=== PATIENT | female | born 1935 | race Caucasian/White ===

== ENCOUNTER → 2020-05-29 07:51 | Outpatient (CLI) | payer MEDICARE, OTHER, SELFPAY ==
--- NOTE | 2020-05-29 07:54 | DI.RAD.S_ITS ---
PROCEDURE: XR HIP W PEL IF DONE RT 2V INDICATIONS: R hip/pelvis pain s/p trauma 6 weeks ago TTP inferoposterior TECHNIQUE: AP pelvis with lateral view(s) of the right hip(s). COMPARISON: None. FINDINGS: Bones: There is irregularity at the right femoral neck compared to the left. The trabecular pattern appears somewhat distorted. This raises the possibility of a nondisplaced fracture of the right hip. No dislocation. No avascular necrosis of the right hip. Pelvic ring appears intact. No suspicious bony lesions. There is a mild to moderate symmetric joint space narrowing of the hips bilaterally. There is mild to moderate degenerative change demonstrable by acetabular sclerosis and subchondral cystic change. There is osteophyte formation at the right hip. There is moderate degenerative change at the pubic symphysis. Bones appear osteopenic. Soft tissues: The visualized bowel gas pattern is normal. No suspicious soft tissue calcifications. IMPRESSION: 1. Irregularity and possible distortion of the trabeculae of the right femoral neck compared to the left. This raises the possibility of a prior nondisplaced fracture. -consider further evaluation with MRI to evaluate for bony edema or CT bony pelvis. 2. Osteopenia. 3. 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 Dictated by: Thomas Jiménez M.D. on 05/29/2020 at 8:45 Approved by: Thomas Jiménez M.D. on 05/29/2020 at 8:54
== END ==
PROVIDERS: PCP Registered Nurse Diabetes Educator; Referring Provider Registered Nurse Diabetes Educator; Visit Provider Registered Nurse Diabetes Educator
DX: M25.551 Pain in right hip (principal); M16.0 Bilateral primary osteoarthritis of hip; M85.88 Other specified disorders of bone density and structure, other site
CPT/HCPCS: 73503

== ENCOUNTER → 2020-06-11 13:37 | Outpatient (CLI) | payer MEDICARE, OTHER, SELFPAY ==
--- NOTE | 2020-06-11 | DI.MRI.S_ITS ---
PROCEDURE: MR LUMBAR SPINE WO CON INDICATIONS: Other specified dorsopathies, lumbar region TECHNIQUE: Noncontrast sagittal T1 spin echo and T2 fast echo, sagittal STIR, axial T1 and T2 fast spin echo through the lumbar spine. In cases with scoliosis, additional coronal T2 fast spin echo may be performed. COMPARISON: None. FINDINGS: Image quality: Excellent. Alignment and Curvature: Icef-wo-ufrqwehj dextroconvex scoliotic curvature is seen. There is minimal retrolisthesis seen at L1-2, L2-3, and L3-4. Minimal anterolisthesis is seen at L5-S1. Bone Marrow: Marrow is of normal overall signal. No acute vertebral body compression fractures. Spinal Cord: Conus medullaris terminates at the L1 level. Visualized cord demonstrates normal signal and size. Paraspinous Soft Tissues: No paravertebral masses. Left-sided renal cysts are seen. T12-L1: Mild loss of disc height is seen. Loss of disc signal is seen. Bridging endplate osteophytes are seen. No neural foraminal or central canal narrowing can be seen. L1-L2: [id number] loss of disc height and disc signal can be seen. Bridging endplate osteophytes are seen. There is at least moderate bilateral neural foraminal narrowing seen. No significant central canal narrowing is seen. L2-L3: Zubu-[id number] loss of disc height and disc signal can be seen. Bridging endplate osteophytes are seen. There is at least moderate disc bulge seen, which is eccentric to the left. There is a left lateral recess disc extrusion, with superior migration of disc material, as on series 7 image 16 and on series 3 image 9. There is moderate right-sided and moderate to severe left-sided neural foraminal narrowing seen. There is a degree of compression seen upon the exiting left L2 nerve root. There is at least moderate central canal narrowing seen. There is at least moderate facet hypertrophy seen. Associated hypertrophy of the ligamentum flavum can be seen. L3-L4: At least moderate loss of disc height and disc signal can be seen. Moderate disc bulge is seen, which is eccentric to the left. There is a left lateral recess disc extrusion, which is best seen on series 3, image 9, with superior migration of the disc material. Moderate facet joint hypertrophy is seen. Associated hypertrophy of the ligamentum flavum can be seen. There is moderate to severe bilateral neural foraminal narrowing seen, left worse than right. There is a degree of compression seen upon the exiting nerve roots. At least moderate central canal narrowing is seen. L4-L5: The disc height is well-preserved. Loss of disc signal is seen at this level. Moderate disc bulge is seen, with a central disc protrusion. Moderate prominent facet hypertrophy is seen. Associated hypertrophy of the ligamentum flavum can be seen. Fluid is seen within the facet joints themselves. There is at least moderate left-sided and moderate to severe right-sided neural foraminal narrowing seen. There is a degree of compression seen upon the exiting nerve roots. Severe central canal narrowing is seen, as on series 7, image 26. L5-S1: The disc height is well-preserved. Loss of disc signal is seen at this level. Mild to moderate disc bulge is seen. Prominent facet hypertrophy is seen. Fluid is seen within the facet joints themselves. Associated hypertrophy of the ligamentum flavum can be seen. Moderate to severe bilateral neural foraminal narrowing is seen, right worse than left. There is a degree of compression seen upon the exiting nerve roots. Severe central canal narrowing is seen, as on series 7, image 30. IMPRESSION: Multiple levels of relatively prominent lumbar spine degenerative change are seen, which are most prominent inferiorly. 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 Dictated by: Haroldo Aparicio M.D. on 06/11/2020 at 16:01 Approved by: Haroldo Aparicio M.D. on 06/11/2020 at 16:07
== END ==
PROVIDERS: PCP Registered Nurse Diabetes Educator; Referring Provider Registered Nurse Diabetes Educator; Visit Provider Orthopaedic Surgery
DX: M53.86 Other specified dorsopathies, lumbar region (principal); M47.816 Spondylosis without myelopathy or radiculopathy, lumbar region; M47.817 Spondylosis without myelopathy or radiculopathy, lumbosacral region; M41.86 Other forms of scoliosis, lumbar region
CPT/HCPCS: 72148

== ENCOUNTER → 2020-09-05 07:25 | Outpatient (CLI) | payer MEDICARE, OTHER, SELFPAY ==
[2020-09-05 08:39] LABS: Add Manual Diff / Slide Review NO; Basophils Absolute Auto 100 /uL (0-100); Basophils Percent Auto 1.2 % (0-2); Eosinophils Absolute Auto 400 /uL (0-450); Eosinophils Percent Auto 6.5 % (2-4); Hemoglobin 11.7 g/dL (12.0-16.0); Lymphocytes Absolute Auto 1100 /uL (1100-4500); Lymphocytes Percent Auto 20.9 % (25-40); Mean Corpuscular HGB Conc 32.4 % (30-36); Mean Corpuscular Hemoglobin 28.4 PG (26-34); Mean Corpuscular Volume 87.6 fL (80-100); Monocytes Absolute Auto 600 /uL (0-900); Monocytes Percent Auto 10.1 % (3-14); Neutrophils Absolute Auto 3400 /uL (1500-7000); Neutrophils Percent Auto 61.3 % (50-75); Platelet Count 244 X10^3/uL (150-400); Red Blood Cell Count 4.11 X10^6/uL (4.0-5.2); Red Cell Distribution Width 15.8 % (11.6-14.8); White Blood Cell Count 5.5 X10^3/uL (4.5-11.0)
[2020-09-05 08:56] LABS: Creatinine Urine Random 125.5 mg/dL
[2020-09-05 09:02] LABS: Microalbumi Creatinin Ratio Ur 14.3 ug/mg CR (<30); Microalbumin Urine Random 1.8 mg/dL (0-1.6)
[2020-09-05 09:08] LABS: Alanine Aminotransferase 13 IU/L (<35); Albumin 4.1 g/dL (3.5-5.0); Albumin Globulin Ratio 1.5 (1.0-2.8); Alkaline Phosphatase 84 U/L (38-126); Aspartate Aminotransferase 23 IU/L (14-36); BUN Creatinine Ratio 18.5 (6-22); Bilirubin Total 0.5 mg/dL (0.2-1.3); Blood Urea Nitrogen 17 mg/dL (7-17); Calcium 9.5 mg/dL (8.4-10.2); Carbon Dioxide 29 mmol/L (22-32); Chloride 104 mmol/L (98-107); Cholesterol 131 mg/dL (140-199); Estimated Glomerular Filt Rate 58.3 mL/min (>60); Globulin 2.7 g/dL (1.7-4.1); Glucose 111 mg/dL (80-110); HDL Cholesterol 48 mg/dL (40-60); HEMOLYSIS < 15 (0-50); LDL Cholesterol Calculated 68 mg/dL (<100); Potassium 4.7 mmol/L (3.4-5.1); Sodium 140 mmol/L (137-145); Total Protein 6.8 g/dL (6.3-8.2); Triglycerides 73 mg/dL (35-150)
[2020-09-05 09:37] LABS: TSH w/ Reflex to FT4 4.86 uIU/mL (0.47-4.68)
[2020-09-05 10:05] LABS: Free T4, Direct Thyroxine 1.45 ng/dL (0.78-2.19)
== END ==
PROVIDERS: PCP Registered Nurse Diabetes Educator; Referring Provider Registered Nurse Diabetes Educator; Visit Provider Registered Nurse Diabetes Educator
DX: E11.9 Type 2 diabetes mellitus without complications (principal)
CPT/HCPCS: 36415; 80053; 80061; 82043; 82570; 83036; 84439; 84443; 85025

== ENCOUNTER → 2020-11-21 14:47 | Outpatient (CLI) | payer MEDICARE, OTHER, SELFPAY ==
--- NOTE | 2020-11-21 14:50 | DI.ECHO.S_ITS ---
[facility] +---------+ : : [address] : : : : [id number] : : : : Phone: [phone]+ Echocardiogram Report + + :Name: HAN PELLETIER Study Date: 11/21/2020 Height: 61 in : :[facility] ReadingLocation: Weight: 130 lb : : Gender: Female BSA: 1.6 m2 : :: 1935 Age: 85 yrs BP: 126/68 mmHg: :Reason For Study: Atrial fibrillation : :Ordering Physician: RAMONA, : :SUZI Performed By: Paulina Kline : :Referring: SUZI PETIT : + + Interpretation Summary 1) Normal left ventricular size, wall motion, and systolic function (EF 55- 60%). 2) Normal right ventricular size and function. 3) The left atrium is severely dilated. 4) The mitral valve has been surgically repaired and an annuloplasty ring sewn in place.There is mild mitral regurgitation. 5) No prior Echo available for comparison. Procedure: A two-dimensional transthoracic echocardiogram with color flow and Doppler was performed. The study quality was technically adequate. There is no prior echocardiogram noted for this patient. The heart rate ranged between 59-72 bpm during the study. Left Ventricle: The left ventricle is normal in size. Left ventricular wall thickness is mildly increased. The ejection fraction is estimated to be 55- 60%. Diastolic function could not be accurately assessed due to confounding valvular disease. Right Ventricle: The right ventricle is normal in size and function. Atria: The left atrium is severely dilated. The right atrium is normal in size. There is no Doppler evidence for an interatrial shunt. Mitral Valve: The mitral valve has been surgically repaired and an annuloplasty ring sewn in place. There is mild mitral regurgitation. Aortic Valve: The aortic valve is trileaflet. The aortic valve opens well. There is no aortic valve stenosis. There is mild aortic regurgitation. Tricuspid Valve: The tricuspid valve is normal in structure and function. Pulmonary artery pressures cannot be estimated because of the lack of a measurable TR jet velocity but the IVC suggests a CVP of around 3 mmHg. There is mild tricuspid regurgitation. Pulmonic Valve: The pulmonic valve leaflets are thin and pliable; valve motion is normal. There is no pulmonic valvular regurgitation. Great Vessels: The aortic root is normal size. The ascending aorta could not be visualized. The IVC is of normal diameter and collapses greater than 50% with a sniff. This suggests a low right atrial pressure of 3 mm Hg. Pericardium/ Pleura There is no pericardial effusion. There is no pleural effusion. MMode/2D Measurements & Calculations LVIDd: 4.4 cm LVOT diam: 2.2 cm LVIDs: 3.2 cm Ao root diam: 3.5 cm FS: 26.7 % Ao Arch Diam (Prox Trans): 2.9 cm EPSS: 0.89 cm IVSd: 1.2 cm LVPWd: 1.1 cm LV chin. diameter/BSA (cm/m^2): 2.8 LV sys. diameter/BSA (cm/m^2): 2.0 LA A2 area: 31.4 cm2 RA long axis: 5.9 cm LA A4 area: 23.7 cm2 RA area: 19.0 cm2 LA length (vol): 5.9 cm RA vol: 51.8 ml LA vol: 107.2 ml RA : 32.9 ml/m2 LA vol index: 68.1 ml/m2 IVC diam: 1.6 cm RVD1 (basal): 3.7 cm TAPSE: 1.8 cm Doppler Measurements & Calculations Ao V2 max: 142.3 cm/sec LVOT Max Lalito: 100.6 cm/sec Ao V2 mean: 101.0 cm/sec LV V1 max P.0 mmHg Ao max P.1 mmHg LV V1 VTI: 23.7 cm Ao mean P.6 mmHg JAMIE(I,D): 3.1 cm2 Ao V2 VTI: 28.4 cm JAMIE(V,D): 2.6 cm2 sev ratio: 0.84 JAMIE indexed to BSA (cm^2/m^2): 2.0 AI P1/2t: 889.7 msec AI dec slope: 153.4 cm/sec2 MV E max lalito: 97.0 cm/sec PA V2 max: 41.4 cm/sec MV A max lalito: 68.8 cm/sec PA V2 mean: 27.4 cm/sec MV E/A: 1.4 PA mean P.34 mmHg Med Peak E' Lalito: 7.2 cm/sec PA pr(Accel): 29.3 mmHg E/E' med: 13.6 Lat Peak E' Lalito: 7.6 cm/sec E/E' lat: 12.8 E/e' average: 13.2 MV dec time: 0.26 sec SV(LVOT): 87.3 ml Reading Physician:12:29 PM
== END ==
PROVIDERS: PCP Registered Nurse Diabetes Educator; Referring Provider Internal Medicine Cardiovascular Disease; Visit Provider Internal Medicine Cardiovascular Disease
DX: I08.3 Combined rheumatic disorders of mitral, aortic and tricuspid valves (principal); I48.19 Other persistent atrial fibrillation; Z98.890 Other specified postprocedural states
CPT/HCPCS: 93306

== ENCOUNTER → 2020-12-05 08:50 | Outpatient (CLI) | payer MEDICARE, OTHER, SELFPAY ==
[2020-12-05 09:44] LABS: Add Manual Diff / Slide Review NO; Basophils Absolute Auto 100 /uL (0-100); Basophils Percent Auto 0.9 % (0-2); Eosinophils Absolute Auto 400 /uL (0-450); Eosinophils Percent Auto 7.4 % (2-4); Hematocrit 36.3 % (36-46); Hemoglobin 11.7 g/dL (12.0-16.0); Lymphocytes Absolute Auto 1400 /uL (1100-4500); Lymphocytes Percent Auto 25.8 % (25-40); Mean Corpuscular HGB Conc 32.1 % (30-36); Mean Corpuscular Hemoglobin 27.6 PG (26-34); Mean Corpuscular Volume 85.9 fL (80-100); Monocytes Absolute Auto 400 /uL (0-900); Monocytes Percent Auto 7.8 % (3-14); Neutrophils Absolute Auto 3200 /uL (1500-7000); Neutrophils Percent Auto 58.1 % (50-75); Platelet Count 240 X10^3/uL (150-400); Red Blood Cell Count 4.23 X10^6/uL (4.0-5.2); Red Cell Distribution Width 15.3 % (11.6-14.8); White Blood Cell Count 5.5 X10^3/uL (4.5-11.0)
[2020-12-05 09:54] LABS: HEMOLYSIS < 15 (0-50); Iron 56 ug/dL (37-170)
[2020-12-05 09:55] LABS: BUN Creatinine Ratio 23.5 (6-22); Blood Urea Nitrogen 20 mg/dL (7-17); Calcium 9.9 mg/dL (8.4-10.2); Carbon Dioxide 32 mmol/L (22-32); Chloride 101 mmol/L (98-107); Estimated Glomerular Filt Rate > 60.0 mL/min (>60); Glucose 125 mg/dL (80-110); HEMOLYSIS < 15 (0-50); Potassium 4.1 mmol/L (3.4-5.1); Sodium 139 mmol/L (137-145)
[2020-12-05 10:05] LABS: Percent Iron Saturation 16 % (15-50); Total Iron Binding Capacity 357 ug/dL (265-497); Transferrin 268 mg/dL (206-381)
[2020-12-05 10:25] LABS: TSH w/ Reflex to FT4 3.66 uIU/mL (0.47-4.68)
== END ==
PROVIDERS: PCP Registered Nurse Diabetes Educator; Referring Provider Registered Nurse Diabetes Educator; Visit Provider Registered Nurse Diabetes Educator
DX: E11.9 Type 2 diabetes mellitus without complications (principal); E78.5 Hyperlipidemia, unspecified; F32.9 Major depressive disorder, single episode, unspecified; I05.9 Rheumatic mitral valve disease, unspecified; I10 Essential (primary) hypertension
CPT/HCPCS: 36415; 80048; 83036; 83540; 83550; 84443; 85025

== ENCOUNTER → 2021-06-09 09:10 | Outpatient (CLI) | payer MEDICARE, OTHER, SELFPAY ==
[2021-06-09 09:35] LABS: Add Manual Diff / Slide Review NO; Basophils Absolute Auto 100 /uL (0-100); Basophils Percent Auto 1.2 % (0-2); Eosinophils Absolute Auto 400 /uL (0-450); Hematocrit 37.1 % (36-46); Hemoglobin 12.2 g/dL (12.0-16.0); Lymphocytes Absolute Auto 1300 /uL (1100-4500); Lymphocytes Percent Auto 25.1 % (25-40); Mean Corpuscular HGB Conc 32.8 % (30-36); Mean Corpuscular Hemoglobin 27.9 PG (26-34); Monocytes Absolute Auto 400 /uL (0-900); Monocytes Percent Auto 6.9 % (3-14); Neutrophils Absolute Auto 3200 /uL (1500-7000); Neutrophils Percent Auto 59.8 % (50-75); Platelet Count 263 X10^3/uL (150-400); Red Blood Cell Count 4.37 X10^6/uL (4.0-5.2); White Blood Cell Count 5.3 X10^3/uL (4.5-11.0)
[2021-06-09 09:47] LABS: BUN Creatinine Ratio 21.7 (6-22); Blood Urea Nitrogen 18 mg/dL (7-17); Calcium 10.1 mg/dL (8.4-10.2); Carbon Dioxide 29 mmol/L (22-32); Chloride 104 mmol/L (98-107); Estimated Glomerular Filt Rate > 60.0 mL/min (>60); Glucose 134 mg/dL (80-110); HEMOLYSIS < 15 (0-50); Potassium 4.6 mmol/L (3.4-5.1); Sodium 139 mmol/L (137-145)
== END ==
PROVIDERS: PCP Registered Nurse Diabetes Educator; Referring Provider Physician Assistant; Visit Provider Physician Assistant
DX: R19.7 Diarrhea, unspecified (principal)
CPT/HCPCS: 36415; 80048; 85025

== ENCOUNTER → 2021-06-10 07:59 | Outpatient (CLI) | payer MEDICARE, OTHER, SELFPAY ==
[2021-06-10 12:49] LABS: Clostridium Difficile Tox PCR Negative for C. diff (Negative)
== END ==
PROVIDERS: PCP Registered Nurse Diabetes Educator; Referring Provider Physician Assistant; Visit Provider Physician Assistant
DX: R19.7 Diarrhea, unspecified (principal)
CPT/HCPCS: 87045; 87177; 87493; 87899

== ENCOUNTER → 2021-11-06 10:59 | Outpatient (CLI) | payer MEDICARE, OTHER, SELFPAY ==
[2021-11-06 11:32] LABS: Alanine Aminotransferase 16 IU/L (<35); Albumin 4.5 g/dL (3.5-5.0); Albumin Globulin Ratio 1.7 (1.0-2.8); Alkaline Phosphatase 69 U/L (38-126); Aspartate Aminotransferase 23 IU/L (14-36); BUN Creatinine Ratio 20.3 (6-22); Bilirubin Total 0.6 mg/dL (0.2-1.3); Blood Urea Nitrogen 16 mg/dL (7-17); Calcium 9.9 mg/dL (8.4-10.2); Carbon Dioxide 27 mmol/L (22-32); Chloride 105 mmol/L (98-107); Estimated Glomerular Filt Rate > 60.0 mL/min (>60); Globulin 2.7 g/dL (1.7-4.1); Glucose 84 mg/dL (80-110); HEMOLYSIS < 15 (0-50); Potassium 4.1 mmol/L (3.4-5.1); Sodium 140 mmol/L (137-145); Total Protein 7.2 g/dL (6.3-8.2)
== END ==
PROVIDERS: PCP Family Medicine; Referring Provider Physician Assistant; Visit Provider Physician Assistant
DX: R19.8 Other specified symptoms and signs involving the digestive system and abdomen (principal); R63.4 Abnormal weight loss
CPT/HCPCS: 36415; 80053

== ENCOUNTER → 2021-11-11 08:02 | Outpatient (CLI) | payer OTHER, MEDICARE, SELFPAY ==
--- NOTE | 2021-11-11 10:01 | DI.CT.S_ITS ---
PROCEDURE: CT ABDOMEN PELVIS W CON INDICATIONS: ABNORMAL WEIGHTLOSS TECHNIQUE: After the administration of oral and intravenous contrast, axial sections were acquired from the lung bases to the pubic symphysis. Coronal and sagittal reformats were performed. For radiation dose reduction, the following was used: automated exposure control, adjustment of mA and/or kV according to patient size. COMPARISON:None. FINDINGS: Image quality: Excellent. Lung bases: There are 2 oval 4 mm sub solid nodules noted in the periphery of the right lower lobe (axial image 7/series 3, and axial image 8/series 3). No solid nodules identified. Heart: Partially imaged median sternotomy wires. Atherosclerotic calcifications of the coronary arteries. ABDOMEN: Liver: There are 2 hypodensities noted in the liver. 1 is seen in the caudate lobe measuring approximately 1.6 cm in size and measuring mildly higher than fluid attenuation. No internal enhancing components. The 2nd is noted in the right hepatic lobe measuring 1.7 cm size measuring fluid attenuation. These are incompletely characterized but likely represent hepatic cysts versus hemangiomas. Gallbladder: Gallbladder is mildly decompressed but otherwise unremarkable in appearance. Biliary ducts: Unremarkable. Pancreas: Unremarkable. Spleen: Unremarkable. Adrenal Glands: Unremarkable. Kidneys and Ureters: No hydronephrosis. 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 Ureters join into a single right ureter in the middle 3rd of the right ureter. Multiple peripelvic cysts in the left kidney. Larger partially exophytic left renal cysts are also present. Stomach and Bowel: Stomach, small bowel loops, and colon are unremarkable. Moderate amount of fecal material seen throughout the colon without definite asymmetric wall thickening. Mild colonic diverticulosis without acute diverticulitis. Peritoneum: No abnormal intraperitoneal fluid. No free air. Ventral Wall: No ventral hernias. Abdominal Nodes: No retroperitoneal or mesenteric adenopathy by size criteria. Vessels: Aorta and inferior vena cava are normal in size. Scattered atherosclerotic calcifications of the abdominal aorta and iliac vessels without aneurysmal dilatation. PELVIS: Pelvic Organs: Unremarkable. Bladder: Unremarkable. Pelvic Nodes: No enlarged lymph nodes. Miscellaneous: No inguinal hernias are seen. Bones: No acute vertebral body compression fractures. Multilevel spondylitic changes throughout the imaged spine. No suspicious osseous lesions. IMPRESSION: 1. CT abdomen and pelvis without acute abnormalities. No suspicious mass lesions or adenopathy identified in either the abdomen or pelvis to explain patient's weight loss. 2. Colonic diverticulosis without acute diverticulitis. Additionally, consider screening colonoscopy if not already accomplished. 3. Hepatic hypodensities likely representing cysts versus hemangiomas. No suspicious solid lesions identified in the liver. 4. Coronary and aortic atherosclerosis. 5. Left renal cysts and small left peripelvic cysts. 6. There are two 4-mm sub solid oval nodules in the right lower lobe. Consider follow-up CT in 12 months to document stability. Dictated by: Ramsey Sesay M.D. on 11/11/2021 at 10:37 Approved by: Ramsey Sesay M.D. on 11/11/2021 at 11:21
== END ==
PROVIDERS: PCP Family Medicine; Referring Provider Physician Assistant; Visit Provider Physician Assistant
DX: R19.8 Other specified symptoms and signs involving the digestive system and abdomen (principal); R63.4 Abnormal weight loss; R91.8 Other nonspecific abnormal finding of lung field; N28.1 Cyst of kidney, acquired; K57.90 Diverticulosis of intestine, part unspecified, without perforation or abscess without bleeding; I25.10 Atherosclerotic heart disease of native coronary artery without angina pectoris; I70.0 Atherosclerosis of aorta
CPT/HCPCS: 74177

== ENCOUNTER → 2022-01-14 13:11 | Outpatient (CLI) | payer OTHER, SELFPAY ==
[2022-01-14 15:18] LABS: Hematocrit 39.6 % (36-46); Hemoglobin 12.8 g/dL (12.0-16.0); Mean Corpuscular HGB Conc 32.3 % (30-36); Mean Corpuscular Hemoglobin 27.7 PG (26-34); Mean Corpuscular Volume 85.7 fL (80-100); Platelet Count 285 X10^3/uL (150-400); Red Blood Cell Count 4.62 X10^6/uL (4.0-5.2); Red Cell Distribution Width 15.8 % (11.6-14.8); White Blood Cell Count 7.7 X10^3/uL (4.5-11.0)
[2022-01-14 15:38] LABS: Creatinine Urine Random 123.6 mg/dL
[2022-01-14 15:45] LABS: Microalbumi Creatinin Ratio Ur 8.8 ug/mg CR (<30); Microalbumin Urine Random 1.1 mg/dL (0-1.6)
[2022-01-14 15:49] LABS: Hemoglobin A1C% w Est Avg Glu 6.1 % (4.0-6.0)
[2022-01-14 15:50] LABS: Alanine Aminotransferase 13 IU/L (<35); Albumin 4.3 g/dL (3.5-5.0); Albumin Globulin Ratio 1.4 (1.0-2.8); Alkaline Phosphatase 82 U/L (38-126); Aspartate Aminotransferase 22 IU/L (14-36); BUN Creatinine Ratio 18.9 (6-22); Bilirubin Total 0.6 mg/dL (0.2-1.3); Blood Urea Nitrogen 18 mg/dL (7-17); Calcium 9.9 mg/dL (8.4-10.2); Carbon Dioxide 31 mmol/L (22-32); Chloride 102 mmol/L (98-107); Cholesterol 144 mg/dL (140-199); Glucose 101 mg/dL (80-110); HDL Cholesterol 43 mg/dL (40-60); HEMOLYSIS < 15 (0-50); LDL Cholesterol Calculated 69 mg/dL (<100); Potassium 3.9 mmol/L (3.4-5.1); Sodium 140 mmol/L (137-145); Total Protein 7.3 g/dL (6.3-8.2); Triglycerides 161 mg/dL (35-150)
[2022-01-14 16:21] LABS: TSH w/ Reflex to FT4 1.99 uIU/mL (0.47-4.68)
== END ==
PROVIDERS: Registered Nurse Diabetes Educator; PCP Family Medicine; Referring Provider Internal Medicine Cardiovascular Disease; Visit Provider Internal Medicine Cardiovascular Disease
DX: I10 Essential (primary) hypertension (principal); E11.319 Type 2 diabetes mellitus with unspecified diabetic retinopathy without macular edema; E78.5 Hyperlipidemia, unspecified; Z86.2 Personal history of diseases of the blood and blood-forming organs and certain disorders involving the immune mechanism; R79.89 Other specified abnormal findings of blood chemistry
CPT/HCPCS: 80053; 80061; 82043; 82570; 83036; 84443; 85027

== ENCOUNTER 2022-09-22 08:51 | Emergency (ER) | payer MEDICARE, OTHER, SELFPAY ==
[2022-09-22] VITALS (10 sets, daily range): BP systolic 115–202; BP diastolic 53–115; PULSE 83–108; RESP 17–37; TEMP 36.6; O2SAT 96–98; BMI 34.9
--- NOTE | 2022-09-22 09:08 | DI.RAD.S_ITS ---
PROCEDURE: XR CHEST 1V INDICATIONS: Chest pain TECHNIQUE: One view of the chest was acquired. COMPARISON: None. FINDINGS: Surgical changes and devices: None. Lungs and pleura: Lungs are clear. No pleural effusions or pneumothorax. Mediastinum: Mediastinal contours appear normal. Heart size is normal. Bones and chest wall: No suspicious bony lesions. Overlying soft tissues appear unremarkable. IMPRESSION: No acute cardiopulmonary process demonstrated radiographically. Dictated by: Meliton Dorado M.D. on 09/22/2022 at 10:11 Approved by: Meliton Dorado M.D. on 09/22/2022 at 10:11
--- NOTE | 2022-09-22 09:26 | ED.CHESTPAIN ---
HPI - Chest Pain General Chief Complaint: Chest Pain Stated Complaint: LT breast pain t-1 Time Seen by Provider: 09/22/22 09:26 Source: patient Mode of arrival: Ambulatory Limitations: no limitations Limitations: no limitations History of Present Illness HPI narrative: This is an 87-year-old female with atrial fibrillation on Eliquis, mitral valve repair, diabetes, hypertension and dyslipidemia who recently had COVID several weeks ago and was treated with Paxlovid. Patient started developing tenderness in her left breast starting Wednesday and then radiating to her axilla, she states it seems more in the breast tissue or soft tissue and not as much intrathoracic. It is worse with coughing, sneezing, deep inhalation or pleuritic chest pain. It has been persistent since Wednesday without any resolution. She states motion does not bother her. She denies fevers or chills, no cold cough or congestion she denies any shortness of breath. No lightheadedness or passing out. No nausea no vomiting no issues with bowel movements or urination. No swelling of extremities. She had pleurisy remotely when she was much younger. Patient has not had any rashes or skin changes. Patient has had mitral valve repair, left knee surgery. Never smoked tobacco but had a lot of secondhand exposure to of her spouse's were smokers, no alcohol, no illicit. Her primary care is Dr. Toth Related Data Allergies Allergy/AdvReac Type Severity Reaction Status Date / Time Tetracyclines Allergy Verified 09/22/22 09:13 Review of Systems Review of Systems ROS Unobtainable: All systems reviewed & are unremarkable except as noted in HPI and below Patient History Social History Smoking Status: Never smoker Smoking Status: Never smoker Substance Use Type: does not use Exam Narrative Exam Narrative: GENERAL: Alert and oriented x three, female in mild distress HEENT: Head normocephalic, atraumatic, EOMI, pupils reactive, face symmetric, moist mucous membranes NECK: Supple, full range of motion CARDIOVASCULAR: Regular rate and rhythm without murmurs, rubs or gallops. No JVD. No swelling bilateral extremities. Patient does not have any reproducible chest pain except as the 3 o'clock position of the left breast no palpable mass, no skin changes no rash or erythema is noted. Patient does not have any lymphadenopathy into the right axilla. RESPIRATORY: Breath sounds equal bilaterally, no wheezes rales or rhonchi. ABDOMEN: Soft, nontender. Normoactive bowel sounds all 4 quadrants. No guarding or rebound, rigidity, no mass : No CVA tenderness EXTREMITIES: Normal range of motion, no clubbing or edema. Neurovascularly intact NEUROLOGICAL: Cranial nerves II through XII grossly intact. Moving all extremities SKIN: Warm, dry, no petechiae, no rashes or lesions. Initial Vital Signs Initial Vital Signs: Vital Signs Temperature 97.8 F 09/22/22 09:08 Pulse Rate 94 H 09/22/22 09:08 Respiratory Rate 18 09/22/22 09:08 Blood Pressure 187/115 H 09/22/22 09:08 Pulse Oximetry 97 09/22/22 09:08 Oxygen Delivery Method 09/22/22 09:08 Course Orders Ordered: ED Orders 09/22/22 09:08 XR chest 1V Stat EKG-12 Lead Stat 09/22/22 09:25 BNP [NT-proBNP (BNP-Adult 18+)] Stat Complete Blood Count AUTO DIFF Stat Comprehensive Metabolic Panel Stat Lipase Stat Magnesium Stat Troponin & CK Cardiac Panel Stat Uric Acid Stat 09/22/22 10:14 CT angio chest PE protocol Stat Vital Signs Vital signs: Vital Signs - 8 hr 09/22/22 12:00 09/22/22 12:00 Pulse Rate 86 Respiratory Rate 18 Blood Pressure 146/67 H Pulse Oximetry 97 Oxygen Delivery Method Room Air MDM - Chest Pain Lab Data Result diagrams: 09/22/22 09:25 09/22/22 09:25 Labs: Lab Results 09/22/22 09/22/22 09/22/22 Range/Units 09:25 09:25 09:25 WBC 5.7 (4.5-11.0) X10^3/uL RBC 5.12 (4.0-5.2) X10^6/uL Hgb 13.8 (12.0-16.0) g/dL Hct 43.1 (36-46) % MCV 84.2 (80-100) fL MCH 27.0 (26-34) PG MCHC 32.0 (30-36) % RDW 18.8 H (11.6-14.8) % Plt Count 214 (150-400) X10^3/uL Neut % (Auto) 76.5 H (50-75) % Lymph % (Auto) 8.4 L (25-40) % [place] % (Auto) 7.3 (3-14) % Eos % (Auto) 6.8 H (2-4) % Baso % (Auto) 1.0 (0-2) % Neut # (Auto) 4300 (1595-6245) /uL Lymph # (Auto) 500 L (7544-6861) /uL [place] # (Auto) 400 (0-900) /uL Eos # (Auto) 400 (0-450) /uL Baso # (Auto) 100 (0-100) /uL Sodium 136 L (137-145) mmol/L Potassium 4.3 (3.4-5.1) mmol/L Chloride 99 (98-107) mmol/L Carbon Dioxide 24 (22-32) mmol/L BUN 18 H (7-17) mg/dL Creatinine 0.91 (0.52-1.04) mg/dL Estimated GFR > 60 (>60) mL/min BUN/Creatinine Ratio 19.8 (6-22) Glucose 206 H (80-110) mg/dL Uric Acid (2.5-6.2) mg/dL Calcium 9.3 (8.4-10.2) mg/dL Magnesium 1.7 (1.6-2.3) mg/dL Total Bilirubin 0.9 (0.2-1.3) mg/dL AST 24 (14-36) IU/L ALT 19 (<35) IU/L Alkaline Phosphatase 94 (38-126) U/L Total Creatine Kinase 55 (30-135) U/L CK-MB (CK-2) TNP CK-MB (CK-2) Rel Index TNP Troponin I < 0.012 (0.01-0.034) ng/mL NT-Pro-B Natriuret Pep 2440 H (<450) pg/mL Total Protein 7.0 (6.3-8.2) g/dL Albumin 4.0 (3.5-5.0) g/dL Globulin 3.0 (1.7-4.1) g/dL Albumin/Globulin Ratio 1.3 (1.0-2.8) Lipase 76 (23-300) U/L 11/15/22 Range/Units 09:25 WBC (4.5-11.0) X10^3/uL RBC (4.0-5.2) X10^6/uL Hgb (12.0-16.0) g/dL Hct (36-46) % MCV (80-100) fL MCH (26-34) PG MCHC (30-36) % RDW (11.6-14.8) % Plt Count (150-400) X10^3/uL Neut % (Auto) (50-75) % Lymph % (Auto) (25-40) % [place] % (Auto) (3-14) % Eos % (Auto) (2-4) % Baso % (Auto) (0-2) % Neut # (Auto) (4568-7576) /uL Lymph # (Auto) (5080-0341) /uL [place] # (Auto) (0-900) /uL Eos # (Auto) (0-450) /uL Baso # (Auto) (0-100) /uL Sodium (137-145) mmol/L Potassium (3.4-5.1) mmol/L Chloride (98-107) mmol/L Carbon Dioxide (22-32) mmol/L BUN (7-17) mg/dL Creatinine (0.52-1.04) mg/dL Estimated GFR (>60) mL/min BUN/Creatinine Ratio (6-22) Glucose (80-110) mg/dL Uric Acid 4.7 (2.5-6.2) mg/dL Calcium (8.4-10.2) mg/dL Magnesium (1.6-2.3) mg/dL Total Bilirubin (0.2-1.3) mg/dL AST (14-36) IU/L ALT (<35) IU/L Alkaline Phosphatase (38-126) U/L Total Creatine Kinase (30-135) U/L CK-MB (CK-2) CK-MB (CK-2) Rel Index Troponin I (0.01-0.034) ng/mL NT-Pro-B Natriuret Pep (<450) pg/mL Total Protein (6.3-8.2) g/dL Albumin (3.5-5.0) g/dL Globulin (1.7-4.1) g/dL Albumin/Globulin Ratio (1.0-2.8) Lipase (23-300) U/L Imaging Data Chest x-ray: Radiologist's Impression: Janiya Duran??87??F??1935 ? Allergy/Adv: Tetracyclines Close Chest CTA (Signed) Eryn Pruett - 09/22/22 Chest X-Ray (Signed) Meliton Dorado - 09/22/22 Launch?Image [address] [address] XRay Report Signed Patient: Janiya Duran MR#: [id number] : 1935 Acct:[id number] Age/Sex: 87 / F Date of Service: 09/22/22 Loc: ED Accession Number: [id number] ?? Procedure: XR chest 1V Ordering Provider: Chandrika Collazo D.O. PROCEDURE:? XR CHEST 1V ? INDICATIONS:? Chest pain ? TECHNIQUE:? One view of the chest was acquired.? ? COMPARISON:? None. ? FINDINGS:? ? Surgical changes and devices:? None.? ? Lungs and pleura:? Lungs are clear.? No pleural effusions or pneumothorax.? ? Mediastinum:? Mediastinal contours appear normal.? Heart size is normal.? ? Bones and chest wall:? No suspicious bony lesions.? Overlying soft tissues appear unremarkable.? ? IMPRESSION:? No acute cardiopulmonary process demonstrated radiographically. ? ? Dictated by: Meliton Dorado M.D. on 09/22/2022 at 10:11 ? ? Approved by: Meliton Dorado M.D. on 09/22/2022 at 10:11?? CT scan - chest: Radiologist's Impression: [address] [address] [address] Scan Report Signed Patient: Janiya Duran MR#: [id number] : 1935 Acct:[id number] Age/Sex: 87 / F Date of Service: 09/22/22 Loc: ED Accession Number: [id number] ?? Procedure: CT angio chest PE protocol Ordering Provider: Chandrika Collazo D.O. PROCEDURE:? CT ANGIO CHEST PE PROTOCOL ? INDICATIONS:? left breast/axilla pain radiates, pleuritic, had covid/pax ? TECHNIQUE:? After the administration of intravenous contrast, 2 mm thick sections acquired from the pulmonary apices to the posterior costophrenic angles.? 3-dimensional maximum intensity projection (MIP) coronal and sagittal reformats were then acquired through the thorax.? For radiation dose reduction, the following was used:? automated exposure control, adjustment of mA and/or kV according to patient size.? ? COMPARISON:? [facility], CR, XR CHEST 1V, 09/22/2022, 9:39. ? FINDINGS:? Image quality:? Excellent.? ? Pulmonary arteries:? Pulmonary arteries are normal in size, and demonstrate no intraluminal filling defects to suggest central pulmonary embolism.? ? Lungs and pleura:? Lungs are clear.? No pleural effusions or pneumothorax.? Central and peripheral airways are patent.? ? Mediastinum:? Heart size is enlarged, without pericardial effusion.? No mediastinal or hilar adenopathy.? Thoracic aorta is normal in caliber and enhancement.? Esophagus is normal in caliber, without hiatal hernia.? ? Bones and chest wall:? No suspicious bony lesions.? Ribs and thoracic spine appear intact throughout.? Thyroid gland demonstrates low-attenuation particularly within the left lobe.? No priors are available for comparison.? No axillary or supraclavicular adenopathy.? There is prominent low-attenuation collection surrounding the glenohumeral joints bilaterally, extending into the soft tissues.? Hounsfield units are less than 20. There is no associated osseous erosion.? ? Abdomen:? Simple hepatic and renal cysts are noted.? Visualized upper abdominal solid organs appear normal in the early arterial phase of enhancement.? ? IMPRESSION:? ? No pulmonary embolism.? Lungs are clear. ? Low-attenuation collections extending from the glenohumeral joints bilaterally into the soft tissues.? These are suspected to represent large effusions.? ? ? Dictated by: Eryn Pruett M.D. on 09/22/2022 at 11:05 ? ? Approved by: Eryn Pruett M.D. on 09/22/2022 at 11:11?? ECG Data Attestation: I personally reviewed and interpreted this ECG as follows: Prior ECG tracings: not available for review Interpretation: AFib rate of 98 QRS is 74 QTC 444. Patient has PVC but no acute ST elevation or depression appreciated. Patient does not have priors for comparison. MDM Narrative Medical decision making narrative: This is a 87-year-old female who presents with complaint of left breast pain starting Wednesday radiating up towards her left axilla. Patient's labs show an elevated BNP but otherwise normal workup in terms of CBC, CMP, troponin no acute EKG changes she is in AFib but rate controlled with no acute ST changes no priors available for comparison. Patient has had recent COVID infection been on Paxlovid which he is at increased risk for PE so CT chest was obtained to allow for evaluation of soft tissue as well as PE/infection and is found to have no PE, lungs are clear she has collections extending from both glenohumeral joints bilaterally into the soft tissue suspected to be large effusions. Patient does have pain radiating from the left breast or shoulder but does not have any obvious pain in her shoulders. Discussed with Orthopedic surgery, Dr. Saldaña and referred for follow-up. He did review patient's images. States would recommend shoulder surgery we discussed patient does not appear infected. Patient can follow-up non emergently. Reviewed rest of patient's findings with and return precautions. Discharge Plan Departure Patient Disposition: Home Clinical Impression: Atypical chest pain, Effusion of joint of left shoulder, Effusion of joint of right shoulder Activity Restrictions/Additional Instructions: Your imaging today does not show any changes to the heart or lungs but you have what appear to be large effusions and your shoulder joints. From your workup today they do not appear to be infected but you should follow-up with orthopedic surgery for further evaluation. Referral is included below, please call to set up an appointment. You may take Aleve for pain. Please return for fevers, new redness, warmth of her joints, increasing chest pain or shortness of breath, passing out, new swelling of her extremities or other new or concerning changes. Referrals: Gene Johns MD [Physician] - Ankit Devine MD [Primary Care Provider] - Visit Report Forms: Patient Portal/API
[2022-09-22 09:42] LABS: Add Manual Diff / Slide Review NO; Basophils Absolute Auto 100 /uL (0-100); Eosinophils Absolute Auto 400 /uL (0-450); Eosinophils Percent Auto 6.8 % (2-4); Hematocrit 43.1 % (36-46); Hemoglobin 13.8 g/dL (12.0-16.0); Lymphocytes Absolute Auto 500 /uL (1100-4500); Lymphocytes Percent Auto 8.4 % (25-40); Mean Corpuscular Volume 84.2 fL (80-100); Monocytes Absolute Auto 400 /uL (0-900); Monocytes Percent Auto 7.3 % (3-14); Neutrophils Absolute Auto 4300 /uL (1500-7000); Neutrophils Percent Auto 76.5 % (50-75); Platelet Count 214 X10^3/uL (150-400); Red Blood Cell Count 5.12 X10^6/uL (4.0-5.2); Red Cell Distribution Width 18.8 % (11.6-14.8); White Blood Cell Count 5.7 X10^3/uL (4.5-11.0)
[2022-09-22 09:55] LABS: Alanine Aminotransferase 19 IU/L (<35); Albumin Globulin Ratio 1.3 (1.0-2.8); Alkaline Phosphatase 94 U/L (38-126); Aspartate Aminotransferase 24 IU/L (14-36); BUN Creatinine Ratio 19.8 (6-22); Bilirubin Total 0.9 mg/dL (0.2-1.3); Blood Urea Nitrogen 18 mg/dL (7-17); Calcium 9.3 mg/dL (8.4-10.2); Carbon Dioxide 24 mmol/L (22-32); Chloride 99 mmol/L (98-107); Creatine Kinase 55 U/L (30-135); Estimated Glomerular Filt Rate > 60 mL/min (>60); Glucose 206 mg/dL (80-110); HEMOLYSIS 40 (0-50); Lipase 76 U/L (23-300); Magnesium 1.7 mg/dL (1.6-2.3); Potassium 4.3 mmol/L (3.4-5.1); Sodium 136 mmol/L (137-145)
[2022-09-22 10:03] LABS: NT-proBNP (BNP-Adult 18+) 2440 pg/mL (<450)
[2022-09-22 10:06] LABS: Troponin I < 0.012 ng/mL (0.01-0.034)
--- NOTE | 2022-09-22 10:14 | DI.CT.S_ITS ---
PROCEDURE: CT ANGIO CHEST PE PROTOCOL INDICATIONS: left breast/axilla pain radiates, pleuritic, had covid/pax TECHNIQUE: After the administration of intravenous contrast, 2 mm thick sections acquired from the pulmonary apices to the posterior costophrenic angles. 3-dimensional maximum intensity projection (MIP) coronal and sagittal reformats were then acquired through the thorax. For radiation dose reduction, the following was used: automated exposure control, adjustment of mA and/or kV according to patient size. COMPARISON: [facility], , XR CHEST 1V, 09/22/2022, 9:39. FINDINGS: Image quality: Excellent. Pulmonary arteries: Pulmonary arteries are normal in size, and demonstrate no intraluminal filling defects to suggest central pulmonary embolism. Lungs and pleura: Lungs are clear. No pleural effusions or pneumothorax. Central and peripheral airways are patent. Mediastinum: Heart size is enlarged, without pericardial effusion. No mediastinal or hilar adenopathy. Thoracic aorta is normal in caliber and enhancement. Esophagus is normal in caliber, without hiatal hernia. Bones and chest wall: No suspicious bony lesions. Ribs and thoracic spine appear intact throughout. Thyroid gland demonstrates low-attenuation particularly within the left lobe. No priors are available for comparison. No axillary or supraclavicular adenopathy. There is prominent low-attenuation collection surrounding the glenohumeral joints bilaterally, extending into the soft tissues. Hounsfield units are less than 20. There is no associated osseous erosion. Abdomen: Simple hepatic and renal cysts are noted. Visualized upper abdominal solid organs appear normal in the early arterial phase of enhancement. IMPRESSION: No pulmonary embolism. Lungs are clear. Low-attenuation collections extending from the glenohumeral joints bilaterally into the soft tissues. These are suspected to represent large effusions. Dictated by: Eryn Pruett M.D. on 09/22/2022 at 11:05 Approved by: Eryn Pruett M.D. on 09/22/2022 at 11:11
[2022-09-22 11:45] LABS: Uric Acid 4.7 mg/dL (2.5-6.2)
== END 2022-09-22 12:38 | disposition home or self-care (01) ==
PROVIDERS: Emergency Provider Emergency Medicine; PCP Family Medicine
DX: R07.89 Other chest pain (principal); M25.412 Effusion, left shoulder; M25.411 Effusion, right shoulder; Z79.01 Long term (current) use of anticoagulants; Z86.16 Personal history of COVID-19
CPT/HCPCS: 36415; 71045; 71275; 80053; 82550; 83690; 83735; 83880; 84484; 84550; 85025; 93005; 99283; 99284; Q9967

== ENCOUNTER → 2023-01-07 16:47 | Outpatient (CLI) | payer MEDICARE, OTHER, SELFPAY ==
--- NOTE | 2023-01-07 | DI.RAD.S_ITS ---
PROCEDURE: XR HIP W PEL IF DONE BILAT 2V INDICATIONS: Hip Pain TECHNIQUE: AP pelvis with lateral view(s) of the bilateral hip(s). COMPARISON: [facility] [place], CR, XR PELVIS WITH BILATERAL LATERAL HIPS, 06/03/2020, 12:31. FINDINGS: Bones: No fractures or dislocations. Pelvic ring appears intact. No suspicious bony lesions. Moderate degenerative changes of the bilateral hips. Lower lumbar spondylosis. Soft tissues: The visualized bowel gas pattern is normal. No suspicious soft tissue calcifications. IMPRESSION: Bilateral hip without acute fracture or dislocation. Moderate degenerative changes of the bilateral hips which have progressed compared to previous evaluation. Dictated by: Ramsey Sesay M.D. on 01/08/2023 at 12:33 Approved by: Ramsey Sesay M.D. on 01/08/2023 at 13:01
== END ==
PROVIDERS: PCP Family Medicine; Referring Provider Family Medicine; Visit Provider Family Medicine
DX: M25.551 Pain in right hip (principal); M25.552 Pain in left hip; M47.816 Spondylosis without myelopathy or radiculopathy, lumbar region
CPT/HCPCS: 73521

== ENCOUNTER → 2023-04-23 07:36 | Outpatient (CLI) | payer MEDICARE, OTHER, SELFPAY ==
[2023-04-23 08:57] LABS: Add Manual Diff / Slide Review NO; Basophils Absolute Auto 100 /uL (0-100); Eosinophils Absolute Auto 400 /uL (0-450); Eosinophils Percent Auto 5.2 % (2-4); Hemoglobin 13.9 g/dL (12.0-16.0); Lymphocytes Absolute Auto 1300 /uL (1100-4500); Lymphocytes Percent Auto 15.2 % (25-40); Mean Corpuscular Hemoglobin 29.3 PG (26-34); Mean Corpuscular Volume 86.3 fL (80-100); Monocytes Absolute Auto 700 /uL (0-900); Monocytes Percent Auto 8.6 % (3-14); Neutrophils Absolute Auto 5900 /uL (1500-7000); Platelet Count 349 X10^3/uL (150-400); Red Blood Cell Count 4.75 X10^6/uL (4.0-5.2); Red Cell Distribution Width 15.7 % (11.6-14.8); White Blood Cell Count 8.5 X10^3/uL (4.5-11.0)
[2023-04-23 09:32] LABS: BUN Creatinine Ratio 19.6 (6-22); Blood Urea Nitrogen 20 mg/dL (7-17); Calcium 9.8 mg/dL (8.4-10.2); Carbon Dioxide 29 mmol/L (22-32); Chloride 93 mmol/L (98-107); Cholesterol 151 mg/dL (140-199); Estimated Glomerular Filt Rate 54 mL/min (>60); Glucose 119 mg/dL (80-110); HDL Cholesterol 48 mg/dL (40-60); HEMOLYSIS < 15 (0-50); LDL Cholesterol Calculated 75 mg/dL (<100); Potassium 4.5 mmol/L (3.4-5.1); Sodium 132 mmol/L (137-145); Triglycerides 140 mg/dL (35-150)
== END ==
PROVIDERS: PCP Family Medicine; Referring Provider Internal Medicine Cardiovascular Disease; Visit Provider Internal Medicine Cardiovascular Disease
DX: E78.5 Hyperlipidemia, unspecified (principal); I10 Essential (primary) hypertension
CPT/HCPCS: 36415; 80048; 80061; 85025

== ENCOUNTER → 2023-10-05 07:42 | Outpatient (CLI) | payer MEDICARE, OTHER, SELFPAY ==
[2023-10-05 10:15] LABS: Cholesterol 263 mg/dL (140-199); HDL Cholesterol 56 mg/dL (40-60); LDL Cholesterol Calculated 178 mg/dL (<100); Triglycerides 145 mg/dL (35-150)
== END ==
PROVIDERS: PCP Family Medicine; Referring Provider Family Medicine; Visit Provider Family Medicine
DX: E78.2 Mixed hyperlipidemia (principal)
CPT/HCPCS: 36415; 80061

== ENCOUNTER → 2023-10-23 13:44 | Outpatient (CLI) | payer MEDICARE, OTHER, SELFPAY ==
--- NOTE | 2023-10-23 13:46 | DI.MRI.S_ITS ---
PROCEDURE: MR LUMBAR SPINE WO CON INDICATIONS: CHRONIC LOW BACK PAIN/SCOLIOSIS TECHNIQUE: Noncontrast sagittal T1 spin echo and T2 fast echo, sagittal STIR, and T2 fast spin echo through the lumbar spine. In cases with scoliosis, additional coronal T2 fast spin echo may be performed. COMPARISON: None. FINDINGS: Image quality: Excellent. Alignment and Curvature: Convex right thoracolumbar scoliosis Bone Marrow: Multilevel degenerative endplate changes. There are edematous Modic type 1 endplate changes at L2-3 and L4-5. Spinal Cord: Conus medullaris terminates at the L1 level. Visualized cord demonstrates normal signal and size. Paraspinous Soft Tissues: Left renal simple cysts noted T12-L1: Normal appearance. L1-L2: Disc space narrowing with anterior osteophyte. No central stenosis. No foraminal stenosis. L2-L3: Disc space narrowing and hypertrophic facet joints present. Effacement of the right lateral recess with displacement of the descending nerve root. Moderate right and severe left foraminal stenosis. No central stenosis. L3-L4: Disc space narrowing with circumferential disc bulge and hypertrophic facet joints present. Mild central stenosis. Moderate right and severe left foraminal stenosis L4-L5: Disc space narrowing and circumferential disc bulge with hypertrophic facet joints and ligamentum flavum laxity present. Results in severe central stenosis. Bilateral moderate foraminal stenosis L5-S1: Disc space is relatively preserved. Circumferential disc bulge, hypertrophic facet joints and ligamentum flavum laxity combined result in severe central stenosis. Severe right and moderate left foraminal stenosis. Incidental note is made of bilateral facet joint effusions. IMPRESSION: Multilevel degenerative disc disease and arthropathy results in varying degrees of central and foraminal stenosis including severe central stenosis L4-5 and L5-S1 Approved by: Georges Aldana M.D. on 10/25/2023 at 15:23
== END ==
PROVIDERS: PCP Family Medicine; Referring Provider Family Medicine; Visit Provider Family Medicine
DX: M51.36 Other intervertebral disc degeneration, lumbar region (principal); M51.37 Other intervertebral disc degeneration, lumbosacral region; M47.816 Spondylosis without myelopathy or radiculopathy, lumbar region; M47.817 Spondylosis without myelopathy or radiculopathy, lumbosacral region; M48.061 Spinal stenosis, lumbar region without neurogenic claudication; M48.07 Spinal stenosis, lumbosacral region; M41.86 Other forms of scoliosis, lumbar region; M48.8X6 Other specified spondylopathies, lumbar region
CPT/HCPCS: 72148

== ENCOUNTER → 2024-03-14 13:56 | Outpatient (CLI) | payer MEDICARE, OTHER, SELFPAY ==
--- NOTE | 2024-03-14 13:58 | DI.RAD.S_ITS ---
PROCEDURE: XR HIP W PEL IF DONE LT 2V INDICATIONS: pain, fell in Feb TECHNIQUE: AP pelvis with lateral view(s) of the left hip(s). COMPARISON: [facility], , XR HIP W PEL IF DONE BILAT 2V, 01/07/2023, 16:54. FINDINGS: Bones: No fractures or dislocations. Pelvic ring appears intact. No suspicious bony lesions. Mild nonuniform joint space narrowing with osteophytic lipping of the acetabulum. Soft tissues: The visualized bowel gas pattern is normal. No suspicious soft tissue calcifications. IMPRESSION: No acute bony abnormality. Mild to moderate left hip osteoarthritis. Dictated by: Sai Mclean M.D. on 03/14/2024 at 15:17 Approved by: Sai Mclean M.D. on 03/14/2024 at 15:17
--- NOTE | 2024-03-14 13:58 | DI.RAD.S_ITS ---
PROCEDURE: XR SHOULDER LT MIN 2V INDICATIONS: pain, fell in Feb TECHNIQUE: 3 views of the shoulder were acquired. COMPARISON: [facility] [place], CR, XR SHOULDER 2+ VIEWS LEFT, 09/28/2022, 16:53. FINDINGS: Bones: No fractures or dislocations. No suspicious bony lesions. Visualized ribs appear intact. Glenohumeral and acromioclavicular joint space narrowing with associated osteophytosis. Narrowing of the subacromial space. Soft tissues: No suspicious soft tissue calcifications. IMPRESSION: No acute bony abnormality. 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 Narrowing of the subacromial space, typically indicating remote rotator cuff injury. Dictated by: Sai Mclean M.D. on 03/14/2024 at 15:14 Approved by: Sai Mclean M.D. on 03/14/2024 at 15:15
--- NOTE | 2024-03-14 13:58 | DI.RAD.S_ITS ---
PROCEDURE: XR SHOULDER RT MIN 2V INDICATIONS: pain, fell in Feb TECHNIQUE: 3 views of the shoulder were acquired. COMPARISON: None. FINDINGS: Bones: No fractures or dislocations. No suspicious bony lesions. Visualized ribs appear intact. Glenohumeral and acromioclavicular joint space narrowing with associated osteophytosis. Subchondral cystic change, early bony deformity of the humeral head and glenoid. Narrowing of the subacromial interval. Soft tissues: No suspicious soft tissue calcifications. IMPRESSION: No acute bony abnormality. Severe shoulder osteoarthritis. Narrowing of the subacromial interval, most consistent with remote rotator cuff injury. Dictated by: Sai Mclean M.D. on 03/14/2024 at 15:15 Approved by: Sai Mclean M.D. on 03/14/2024 at 15:17
[2024-03-14 15:19] LABS: Alanine Aminotransferase 29 IU/L (<35); Albumin 4.5 g/dL (3.5-5.0); Albumin Globulin Ratio 1.7 (1.0-2.8); Alkaline Phosphatase 103 U/L (38-126); Aspartate Aminotransferase 33 IU/L (14-36); BUN Creatinine Ratio 18.6 (6-22); Bilirubin Total 0.6 mg/dL (0.2-1.3); Blood Urea Nitrogen 18 mg/dL (7-17); Calcium 9.9 mg/dL (8.4-10.2); Carbon Dioxide 29 mmol/L (22-32); Chloride 99 mmol/L (98-107); Estimated Glomerular Filt Rate 57 mL/min (>60); Globulin 2.6 g/dL (1.7-4.1); Glucose 85 mg/dL (80-110); HEMOLYSIS < 15 (0-50); Potassium 3.7 mmol/L (3.4-5.1); Sodium 137 mmol/L (137-145); Total Protein 7.1 g/dL (6.3-8.2)
[2024-03-14 15:22] LABS: Hemoglobin A1C% w Est Avg Glu 6.3 % (4.0-6.0)
== END ==
PROVIDERS: PCP Family Medicine; Referring Provider Family Medicine; Visit Provider Family Medicine
DX: E11.9 Type 2 diabetes mellitus without complications (principal); M46.26 Osteomyelitis of vertebra, lumbar region; M25.552 Pain in left hip; Z91.81 History of falling; M25.511 Pain in right shoulder; M25.512 Pain in left shoulder; I10 Essential (primary) hypertension; M19.012 Primary osteoarthritis, left shoulder; M19.011 Primary osteoarthritis, right shoulder; M16.12 Unilateral primary osteoarthritis, left hip
CPT/HCPCS: 36415; 73030; 73502; 80053; 83036

== ENCOUNTER → 2024-07-06 07:34 | Outpatient (CLI) | payer MEDICARE, OTHER, SELFPAY ==
[2024-07-06 08:08] LABS: Hematocrit 41.6 % (36-46); Hemoglobin 13.6 g/dL (12.0-16.0); Mean Corpuscular HGB Conc 32.6 % (30-36); Mean Corpuscular Hemoglobin 27.9 PG (26-34); Mean Corpuscular Volume 85.5 fL (80-100); Platelet Count 301 X10^3/uL (150-400); Red Blood Cell Count 4.87 X10^6/uL (4.0-5.2); White Blood Cell Count 7.4 X10^3/uL (4.5-11.0)
[2024-07-06 08:38] LABS: BUN Creatinine Ratio 18.9 (6-22); Blood Urea Nitrogen 17 mg/dL (7-17); Calcium 9.6 mg/dL (8.4-10.2); Carbon Dioxide 25 mmol/L (22-32); Chloride 102 mmol/L (98-107); Cholesterol 165 mg/dL (140-199); Estimated Glomerular Filt Rate > 60 mL/min (>60); Glucose 117 mg/dL (80-110); HDL Cholesterol 57 mg/dL (40-60); HEMOLYSIS < 15 (0-50); LDL Cholesterol Calculated 83 mg/dL (<100); Potassium 4.1 mmol/L (3.4-5.1); Sodium 137 mmol/L (137-145); Triglycerides 123 mg/dL (35-150)
== END ==
PROVIDERS: PCP Family Medicine; Referring Provider Internal Medicine Cardiovascular Disease; Visit Provider Internal Medicine Cardiovascular Disease
DX: I10 Essential (primary) hypertension (principal); E78.5 Hyperlipidemia, unspecified
CPT/HCPCS: 36415; 80048; 80061; 85027

== ENCOUNTER → 2024-08-10 09:17 | Outpatient (CLI) | payer MEDICARE, OTHER, SELFPAY ==
--- NOTE | 2024-08-10 09:18 | DI.ECHO.S_ITS ---
[facility] : : [address] : [place] : : [id number] : : Phone: [phone] Echocardiogram Report + + :Name: HAN PELLETIER Study Date: 08/10/2024 Height: 61 in : :[facility] ReadingLocation: Weight: 120 lb : : Gender: Female BSA: 1.5 m2 : :: 1935 Age: 89 yrs BP: 156/108 mmHg: :Reason For Study: S/P MITRAL VALVE REPAIR : :Ordering Physician: RAMONA, : :SUZI Performed By: Meliton Treadwell : :Referring: SUZI PETIT : + + Interpretation Summary 1) Normal left ventricular size with mildly reduced systolic function (EF 45- 50%). 2) Normal right ventricular size with mildly reduced function. 3) The left atrium is severely dilated. 4) The mitral valve has been surgically repaired and an annuloplasty ring sewn in place.There is mild mitral regurgitation. 5) Hypertension present during the study (BP 156/108mmHg). 6) Compared to the Echo done 11/21/2020, LVEF has decreased from normal to mildly reduced on this study. Procedure: A two-dimensional transthoracic echocardiogram with color flow and Doppler was performed. The study quality was technically good. Comparison is made with the echocardiogram of 11/21/2020. The patient was in atrial fibrillation with heart rates between 75-105 bpm during the exam. Left Ventricle: The left ventricle is normal in size. There is normal left ventricular wall thickness. There is no ventricular septal defect visualized. The ejection fraction is estimated to be 45-50%. Septal motion is consistent with post-operative state. Right Ventricle: The right ventricle is normal in size and function. Right ventricular systolic function is mildly reduced. Atria: The left atrium is severely dilated. The right atrium is mild to moderately dilated. The interatrial septum grossly appears intact with no obvious evidence for an atrial septal defect. Mitral Valve: The mitral valve leaflets appear mildly thickened, but open well. An annuloplasty ring is noted in the mitral position. There is mild mitral regurgitation. Aortic Valve: The aortic valve is trileaflet. The aortic valve opens well. There is no aortic valve stenosis. There is mild aortic regurgitation. Tricuspid Valve: The tricuspid valve is normal in structure and function. There is trace tricuspid regurgitation. The right ventricular systolic pressure is estimated to be at least 23 mmHg based on an estimated right atrial pressure of 3 mm Hg. Pulmonic Valve: The pulmonic valve is normal in structure and function. There is no pulmonic valvular regurgitation. Great Vessels: The aortic root is normal size. The dimensions of the ascending aorta are normal. The pulmonary artery is normal size. The IVC is of normal diameter and collapses greater than 50% with a sniff. This suggests a low right atrial pressure of 3 mm Hg. Pericardium/ Pleura There is no pericardial effusion. There is no pleural effusion. MMode/2D Measurements & Calculations LVIDd: 4.4 cm LVOT diam: 2.0 cm LVIDs: 3.4 cm Ao root diam: 3.4 cm FS: 22.4 % asc Aorta Diam: 3.1 cm EPSS: 0.88 cm Ao Arch Diam (Prox Trans): 2.2 cm IVSd: 0.97 cm LVPWd: 1.0 cm LV chin. diameter/BSA (cm/m^2): 2.9 LV sys. diameter/BSA (cm/m^2): 2.3 LA A2 area: 27.7 cm2 RA long axis: 5.6 cm LA A4 area: 31.2 cm2 RA area: 19.8 cm2 LA length (vol): 6.8 cm RA vol: 59.2 ml LA vol: 108.6 ml RA : 38.9 ml/m2 LA vol index: 71.4 ml/m2 IVC diam: 1.5 cm RVD1 (basal): 3.7 cm RVD2 (mid): 2.8 cm TAPSE: 1.6 cm Doppler Measurements & Calculations Ao V2 max: 122.7 cm/sec LVOT Max Lalito: 84.2 cm/sec Ao V2 mean: 89.5 cm/sec LV V1 max P.8 mmHg Ao max P.0 mmHg LV V1 VTI: 15.6 cm Ao mean P.6 mmHg JAMIE(I,D): 2.2 cm2 Ao V2 VTI: 23.2 cm JAMIE(V,D): 2.2 cm2 sev ratio: 0.67 JAMIE indexed to BSA (cm^2/m^2): 1.4 AI P1/2t: 531.6 msec AI dec slope: 268.8 cm/sec2 MV E max lalito: 93.2 cm/sec TR max lalito: 224.1 cm/sec MV A max lalito: 25.5 cm/sec TR max P.1 mmHg MV E/A: 3.7 PA V2 max: 64.7 cm/sec Med Peak E' Lalito: 6.9 cm/sec PA V2 mean: 47.8 cm/sec E/E' med: 13.6 PA mean P.0 mmHg Lat Peak E' Lalito: 7.8 cm/sec PA pr(Accel): 27.6 mmHg E/E' lat: 11.9 E/e' average: 12.7 MV dec time: 0.20 sec MR PISA: 1.1 cm2 SV(LVOT): 50.7 ml MR flow rate: 41.3 cm3/sec MR PISA radius: 0.42 cm Reading Physician:02:10 PM
== END ==
PROVIDERS: PCP Family Medicine; Referring Provider Internal Medicine Cardiovascular Disease; Visit Provider Internal Medicine Cardiovascular Disease
DX: I08.0 Rheumatic disorders of both mitral and aortic valves (principal); Z98.890 Other specified postprocedural states
CPT/HCPCS: 93306

== ENCOUNTER → 2025-04-17 09:16 | Outpatient (CLI) | payer MEDICARE, OTHER, SELFPAY ==
[2025-04-17 10:18] LABS: Hemoglobin A1C% w Est Avg Glu 5.8 % (4.0-6.0)
[2025-04-17 10:22] LABS: BUN Creatinine Ratio 18.4 (6-22); Blood Urea Nitrogen 16 mg/dL (7-17); Calcium 9.6 mg/dL (8.4-10.2); Carbon Dioxide 26 mmol/L (22-32); Chloride 102 mmol/L (98-107); Estimated Glomerular Filt Rate > 60 mL/min (>60); Glucose 170 mg/dL (70-99); HEMOLYSIS < 15 (0-50); Potassium 4.2 mmol/L (3.4-5.1); Sodium 137 mmol/L (137-145)
== END ==
PROVIDERS: PCP Family Medicine; Referring Provider Family Medicine; Visit Provider Family Medicine
DX: E11.9 Type 2 diabetes mellitus without complications (principal); I12.9 Hypertensive chronic kidney disease with stage 1 through stage 4 chronic kidney disease, or unspecified chronic kidney disease; N18.30 Chronic kidney disease, stage 3 unspecified
CPT/HCPCS: 36415; 80048; 83036

== ENCOUNTER → 2025-04-23 10:38 | Outpatient (CLI) | payer MEDICARE, OTHER, SELFPAY | PROVIDERS: PCP Family Medicine; Visit Provider Family Medicine | DX: M54.9 Dorsalgia, unspecified (principal) | CPT/HCPCS: 87077; 87086 ==

== ENCOUNTER → 2025-09-03 14:52 | Outpatient (CLI) | payer MEDICARE, OTHER, SELFPAY | PROVIDERS: PCP Family Medicine; Visit Provider Chiropractor | DX: R30.0 Dysuria (principal) | CPT/HCPCS: 87086 ==

== ENCOUNTER → 2025-09-04 13:58 | Outpatient (CLI) | payer MEDICARE, OTHER, SELFPAY ==
--- NOTE | 2025-09-04 14:00 | DI.RAD.S_ITS ---
PROCEDURE: XR SHOULDER RT 3V INDICATIONS: shoulder effusion, pain TECHNIQUE: 3 views of the shoulder were acquired. COMPARISON: [facility], CR, XR SHOULDER RT MIN 2V, 03/14/2024, 14:02. FINDINGS: There does appear to be new soft tissue swelling lateral to the humeral head and proximal diaphysis which is nonspecific may be related to subdeltoid bursitis or other cause. Severe degenerative changes right glenohumeral joint with joint space narrowing, osteophytes, flattening/remodeling, unchanged. Decreased subacromial space commonly related to chronic rotator cuff tear unchanged. Artifacts from overlying clothing and other extrinsic artifacts partially limit radiographic detail. No radiographic evidence of fracture, dislocation. IMPRESSION: New nonspecific soft tissue swelling/edema lateral to the right humeral head and neck as discussed above possible bursitis or other cause. Severe degenerative changes as discussed above. If symptoms persist or worsen, or there is high clinical suspicion of abnormality, CT or MRI could be performed. Dictated by: Sukumar Anders M.D. on 09/05/2025 at 14:42 Approved by: Sukumar Anders M.D. on 09/05/2025 at 15:03
--- NOTE | 2025-09-04 14:00 | DI.RAD.S_ITS ---
PROCEDURE: XR SHOULDER LT MIN 3V INDICATIONS: shoulder effusion, pain TECHNIQUE: 3 views of the shoulder were acquired. COMPARISON: [facility], CR, XR SHOULDER RT MIN 2V, 03/14/2024, 14:02. FINDINGS: Artifacts from overlying clothing and other extrinsic artifacts partially limit radiographic detail. Severe degenerative changes of the left glenohumeral joint with joint space narrowing, osteophytes, flattening/remodeling of the humeral head similar to the prior exam. Possible 5 millimeter intra-articular loose body versus calcific tendinitis or other heterotopic calcification on the 2nd image just cephalad to the humeral head. Moderate degenerative changes of the acromioclavicular joint unchanged. No radiographic evidence of fracture, dislocation. Incidental note is made of median sternotomy, calcifications of the aortic arch left atrial appendage clip unchanged. IMPRESSION: Severe degenerative changes as discussed above. Possible intra-articular loose body versus calcification as discussed above. If symptoms persist or worsen, or there is high clinical suspicion of abnormality, CT or MRI could be performed. Dictated by: Sukumar Anders M.D. on 09/05/2025 at 14:38 Approved by: Sukumar Anders M.D. on 09/05/2025 at 14:42
== END ==
PROVIDERS: PCP Family Medicine; Referring Provider Physical Medicine & Rehabilitation; Visit Provider Physical Medicine & Rehabilitation
DX: M19.011 Primary osteoarthritis, right shoulder (principal); M19.012 Primary osteoarthritis, left shoulder; M25.411 Effusion, right shoulder; M25.412 Effusion, left shoulder; M25.511 Pain in right shoulder; M25.512 Pain in left shoulder; G89.29 Other chronic pain
CPT/HCPCS: 73030

== ENCOUNTER → 2025-10-30 11:02 | Outpatient (CLI) | payer MEDICARE, OTHER, SELFPAY ==
[2025-10-30 11:38] LABS: Hematocrit 43.5 % (36-46); Hemoglobin 14.5 g/dL (12.0-16.0); Mean Corpuscular HGB Conc 33.4 % (30-36); Mean Corpuscular Hemoglobin 29.7 PG (26-34); Mean Corpuscular Volume 88.9 fL (80-100); Platelet Count 241 X10^3/uL (150-400)
[2025-10-30 11:48] LABS: Hemoglobin A1C% w Est Avg Glu 6.0 % (4.0-6.0)
[2025-10-30 11:51] LABS: Alanine Aminotransferase 20 IU/L (<35); Albumin 4.4 g/dL (3.5-5.0); Albumin Globulin Ratio 1.8 (1.0-2.8); Alkaline Phosphatase 93 U/L (38-126); Blood Urea Nitrogen 17 mg/dL (7-17); Calcium 9.9 mg/dL (8.4-10.2); Carbon Dioxide 26 mmol/L (22-32); Chloride 104 mmol/L (98-107); Estimated Glomerular Filt Rate > 60 mL/min (>60); Globulin 2.5 g/dL (1.7-4.1); Glucose 88 mg/dL (70-99); HEMOLYSIS 18 (0-50); Potassium 4.1 mmol/L (3.4-5.1); Sodium 139 mmol/L (137-145); Total Protein 6.9 g/dL (6.3-8.2)
[2025-10-30 12:22] LABS: TSH w/ Reflex to FT4 1.32 uIU/mL (0.47-4.68)
[2025-10-30 12:41] LABS: Vitamin B12 974 pg/mL (239-931)
[2025-10-30 12:52] LABS: Appearance Urine UA CLEAR; Bilirubin Urine UA NEGATIVE (NEGATIVE); Color Urine UA YELLOW; Glucose Urine UA NEGATIVE (Negative); Ketones Urine UA NEGATIVE (NEGATIVE); Leukocyte Esterase Urine UA 1+ (NEGATIVE); Nitrite Urine UA NEGATIVE (Negative); Occult Blood Urine UA NEGATIVE (Negative); Protein Urine UA NEGATIVE (Negative); Specific Gravity Urine UA 1.015 (1.000-1.035); Urobilinogen Urine UA 0.2 E.U./dL (0.2)
[2025-10-30 13:00] LABS: Culture Indicated Urine Specimen Cultured; pH Urine UA 7.5 (4.5-8.0)
== END ==
PROVIDERS: PCP Family Medicine; Referring Provider Family Medicine; Visit Provider Family Medicine
DX: Z00.00 Encounter for general adult medical examination without abnormal findings (principal); N18.30 Chronic kidney disease, stage 3 unspecified; E11.319 Type 2 diabetes mellitus with unspecified diabetic retinopathy without macular edema; I48.21 Permanent atrial fibrillation; N32.81 Overactive bladder
CPT/HCPCS: 36415; 80053; 81001; 82607; 83036; 84443; 85027; 87086